=== PATIENT | male | born 1965 | race African-American/Black ===

== ENCOUNTER 2020-09-13 18:56 | Inpatient (IN) | payer OTHER ==
[2020-09-13 19:44] VITALS: BMI 19.0
[2020-09-13] MEDS ORDERED: MAG HYDROX/AL HYDROX/SIMETH 30 ML UNIT-DOSE CUP PO PRN (21:43)
[2020-09-13] MEDS ORDERED: MENTHOL/PHENOL 1 EACH UD MM PRN (21:43)
[2020-09-13] MEDS ORDERED: MAGNESIUM HYDROX 2400MG/30ML ORAL SUSPENSION 30 ML CUP PO PRN (21:43)
[2020-09-13] MEDS ORDERED: ONDANSETRON *ODT* 4 MG TABLET SL PRN (21:43)
[2020-09-13] MEDS ORDERED: NICOTINE POLACRILEX 2 MG GUM BUC PRN (21:43)
[2020-09-13] MEDS ORDERED: IBUPROFEN 400 MG TABLET (FP) PO PRN (21:43)
[2020-09-13] MEDS ORDERED: methaDONE HCL 10 MG TABLET (FOR DETOX USE ONLY) PO ONE (21:43)
[2020-09-13] MEDS ORDERED: METHOCARBAMOL 500 MG TABLET PO PRN (21:43)
[2020-09-13] MEDS ORDERED: MAGNESIUM CITRATE 300 ML BOTTLE PO PRN (21:43)
[2020-09-13] MEDS ORDERED: BISMUTH SUBSALICYLATE 524 MG/30 ML PO PRN (21:43)
[2020-09-13] MEDS ORDERED: cloNIDine HCL 0.1 MG TABLET PO PRN (21:43)
[2020-09-13] MEDS ORDERED: ACETAMINOPHEN 325 MG TABLET (FP) PO PRN ×2 (21:43)
[2020-09-13] MEDS ORDERED: methaDONE HCL 10 MG TABLET (FOR DETOX USE ONLY) ONE (22:11)
[2020-09-13] MEDS ORDERED: hydrOXYzine PAMOATE 25 MG CAPSULE (FP) PO ONE (22:11)
[2020-09-13] MEDS: hydrOXYzine PAMOATE 25 MG CAPSULE (FP) PO SCH (22:15)
[2020-09-13] MEDS: MELATONIN 5 MG TABLETS PO SCH (22:15)
[2020-09-13] MEDS: THIAMINE HCL 100 MG TABLET (FP) PO SCH (22:15)
[2020-09-14] MEDS ORDERED: hydrOXYzine PAMOATE 25 MG CAPSULE (FP) PO ONE (05:51)
[2020-09-14] MEDS: hydrOXYzine PAMOATE 25 MG CAPSULE (FP) PO SCH ×5 (06:13→22:16)
[2020-09-14] MEDS ORDERED: methaDONE HCL 10 MG TABLET (FOR DETOX USE ONLY) ONE (10:34)
[2020-09-14] MEDS ORDERED: METOPROLOL TARTRATE 25 MG TABLET (FP) PO PRN (10:35)
[2020-09-14] MEDS: PRENATAL VITAMINS W/ FOLIC ACID TABLET (FP) PO SCH (10:36)
[2020-09-14 10:41] LABS: HEMOGLOBIN 11.7 GM/dL (11.7-16.9); MCH 25.9 pg (25.7-33.7); MCHC 31.6 g/dl (32.0-35.9); MEAN PLT VOLUME 8.6 fl (7.5-11.1); PLATELET COUNT 212 10^3/uL (134-434); RBC 4.51 M/mm3 (4.00-5.60); RDW 14.3 % (11.9-15.9)
[2020-09-14] MEDS: NICOTINE 21 MG/24 HOURS TOPICAL PATCH TD SCH (10:42)
[2020-09-14 10:51] LABS: CALCIUM 8.1 mg/dL (8.5-10.1)
[2020-09-14 10:53] LABS: ALBUMIN 2.7 g/dl (3.4-5.0); BILIRUBIN,TOTAL 0.3 mg/dL (0.2-1); BLOOD UREA NITROGEN 14.7 mg/dL (7-18); CREATININE 0.9 mg/dL (0.55-1.3)
[2020-09-14 10:54] LABS: TOT PROT 6.8 g/dl (6.4-8.2)
[2020-09-14] MEDS: amLODIPine BESYLATE 10 MG TABLET (FP) PO SCH (11:02)
[2020-09-14] MEDS: THIAMINE HCL 100 MG TABLET (FP) PO SCH (22:16)
[2020-09-14] MEDS: MELATONIN 5 MG TABLETS PO SCH (22:16)
[2020-09-15] MEDS: hydrOXYzine PAMOATE 25 MG CAPSULE (FP) PO SCH ×5 (05:34→22:19)
[2020-09-15] MEDS: amLODIPine BESYLATE 10 MG TABLET (FP) PO SCH (09:08)
[2020-09-15] MEDS: PRENATAL VITAMINS W/ FOLIC ACID TABLET (FP) PO SCH (09:08)
[2020-09-15] MEDS: NICOTINE 21 MG/24 HOURS TOPICAL PATCH TD SCH (09:08)
[2020-09-15] MEDS ORDERED: methaDONE HCL 10 MG TABLET (FOR DETOX USE ONLY) PO ONE (10:00)
[2020-09-15] MEDS: LISINOPRIL 5 MG TABLET PO SCH (12:23)
[2020-09-15] MEDS: THIAMINE HCL 100 MG TABLET (FP) PO SCH (22:18)
[2020-09-15] MEDS: MELATONIN 5 MG TABLETS PO SCH (22:19)
[2020-09-16] MEDS: hydrOXYzine PAMOATE 25 MG CAPSULE (FP) PO SCH ×5 (06:48→22:10)
[2020-09-16] MEDS ORDERED: methaDONE HCL 10 MG TABLET (FOR DETOX USE ONLY) ONE (09:10)
[2020-09-16 09:53] LABS: BASO % 0.9 % (0-2.0); EOS % 3.5 % (0-4.5); HEMATOCRIT 35.1 % (35.4-49); HEMOGLOBIN 11.4 GM/dL (11.7-16.9); LYMPH % 42.8 % (8-40); MCH 26.2 pg (25.7-33.7); MCHC 32.5 g/dl (32.0-35.9); MEAN CELL VOLUME 80.6 fl (80-96); MEAN PLT VOLUME 8.6 fl (7.5-11.1); MONO % 14.3 % (3.8-10.2); NEUT % 38.5 % (42.8-82.8); PLATELET COUNT 233 10^3/uL (134-434); RBC 4.36 M/mm3 (4.00-5.60); RDW 14.3 % (11.9-15.9); WHITE BLOOD COUNT 3.5 K/mm3 (4.0-10.0)
[2020-09-16] MEDS: LISINOPRIL 5 MG TABLET PO SCH (10:03)
[2020-09-16] MEDS: NICOTINE 21 MG/24 HOURS TOPICAL PATCH TD SCH (10:03)
[2020-09-16] MEDS: amLODIPine BESYLATE 10 MG TABLET (FP) PO SCH (10:03)
[2020-09-16] MEDS: PRENATAL VITAMINS W/ FOLIC ACID TABLET (FP) PO SCH (10:33)
[2020-09-16] MEDS: THIAMINE HCL 100 MG TABLET (FP) PO SCH (22:10)
[2020-09-16] MEDS: MELATONIN 5 MG TABLETS PO SCH (22:11)
[2020-09-17] MEDS: hydrOXYzine PAMOATE 25 MG CAPSULE (FP) PO SCH ×5 (05:59→22:40)
[2020-09-17] MEDS ORDERED: methaDONE HCL 10 MG TABLET (FOR DETOX USE ONLY) PO ONE (10:00)
[2020-09-17] MEDS: LISINOPRIL 5 MG TABLET PO SCH (10:05)
[2020-09-17] MEDS: PRENATAL VITAMINS W/ FOLIC ACID TABLET (FP) PO SCH (10:06)
[2020-09-17] MEDS: amLODIPine BESYLATE 10 MG TABLET (FP) PO SCH (10:06)
[2020-09-17] MEDS: NICOTINE 21 MG/24 HOURS TOPICAL PATCH TD SCH (10:08)
[2020-09-17] MEDS: MELATONIN 5 MG TABLETS PO SCH (22:40)
[2020-09-17] MEDS: THIAMINE HCL 100 MG TABLET (FP) PO SCH (22:40)
[2020-09-18] MEDS: hydrOXYzine PAMOATE 25 MG CAPSULE (FP) PO SCH ×2 (05:54→09:39)
[2020-09-18 09:10] VITALS: BP 122/74; PULSE 64; TEMP 98.5
[2020-09-18] MEDS: PRENATAL VITAMINS W/ FOLIC ACID TABLET (FP) PO SCH (09:39)
[2020-09-18] MEDS: amLODIPine BESYLATE 10 MG TABLET (FP) PO SCH (09:39)
[2020-09-18] MEDS: NICOTINE 21 MG/24 HOURS TOPICAL PATCH TD SCH (09:39)
[2020-09-18] MEDS ORDERED: LISINOPRIL 10 MG TABLET PO SCH (10:00)
== END 2020-09-18 09:40 | disposition home or self-care (01) | DRG 773 ==
LOC: YASAS 18:56 → Y6N 09-14 09:11
PROVIDERS: ADMIT Allergy & Immunology; ATTEND Allergy & Immunology
PROC: HZ2ZZZZ Detoxification Services for Substance Abuse Treatment (ICD-10-PCS; principal; 2020-09-14)
DX: F11.23 Opioid dependence with withdrawal (principal); F14.20 Cocaine dependence, uncomplicated; F17.210 Nicotine dependence, cigarettes, uncomplicated; Z21 Asymptomatic human immunodeficiency virus [HIV] infection status; D64.9 Anemia, unspecified; D72.819 Decreased white blood cell count, unspecified; I10 Essential (primary) hypertension; B18.2 Chronic viral hepatitis C; Z85.46 Personal history of malignant neoplasm of prostate
CPT/HCPCS: 36415; 80053; 85025; 85027; 86780; C9803; J0735; Q0162; U0003; U0005